=== PATIENT | female | born 2000 | race Caucasian/White ===

== ENCOUNTER 2019-08-12 15:23 | Emergency (ER) | payer OTHER ==
[2019-08-12 15:40] VITALS: BP 116/78
--- NOTE | 2019-08-12 16:02 | UC ---
Throat Pain/Nasal [place] HPI - HPI Summary HPI Summary: Pt presents with c/o nasal congestion, cough body aches, ST, subjective fever and chills X 2 days. - History of Current Complaint Chief Complaint: UCGeneralIllness Stated Complaint: EAR PAIN, SORE THROAT, CHILLS Time Seen by Provider: 08/12/19 15:43 Hx Obtained From: Patient Hx Last Menstrual Period: 07/22/19 ?: No Onset/Duration: Sudden Onset, Lasting Days, Still Present Severity: Moderate Pain Intensity: 7 Cough: Nonproductive Associated Signs & Symptoms: Positive: Sinus Discomfort, Nasal Discharge, Fever - Epiglottits Risk Factors Epiglottis Risk Factors: Sudden Onset - Allergies/Home Medications Allergies/Adverse Reactions: Allergies Allergy/AdvReac Type Severity Reaction Status Date / Time No Known Allergies Allergy Verified 08/12/19 15:37 Home Medications: Home Medications FLUoxetine* [PROzac*] 10 mg PO DAILY 08/12/19 [History Confirmed 08/12/19] Norethindrone AC-Eth Estradiol [Hakan 1.5 mg-30 Mcg Tablet] 1 each PO DAILY 08/19 [History Confirmed 08/12/19] PMH/Surg Hx/FS Hx/Imm Hx Previously Healthy: Yes - Surgical History Surgical History: None - Family History Known Family History: Positive: Cardiac Disease - Social History Occupation: Student - [employer] Lives: Dormitory/Roommates Alcohol Use: Rare Substance Use Type: None Smoking Status (MU): Never Smoked Tobacco - Immunization History Vaccination Up to Date: Yes Review of Systems All Other Systems Reviewed And Are Negative: Yes Constitutional: Positive: Fever, Chills, Fatigue Skin: Positive: Negative Eyes: Positive: Negative ENT: Positive: Sore Throat, Sinus Congestion, Sinus Pain/Tenderness Respiratory: Positive: Cough Cardiovascular: Positive: Negative Gastrointestinal: Positive: Negative Genitourinary: Positive: Negative Motor: Positive: Negative Neurovascular: Positive: Negative Musculoskeletal: Positive: Negative Neurological: Positive: Headache Psychological: Positive: Negative Is Patient Immunocompromised?: No Physical Exam Triage Information Reviewed: Yes Appearance: Ill-Appearing Vital Signs: Initial Vital Signs Temp 98.4 F 08/12/19 15:28 Pulse 110 08/12/19 15:28 Resp 16 08/12/19 15:28 BP 116/78 08/12/19 15:28 Pulse Ox 97 08/12/19 15:28 Vital Signs Reviewed: Yes Eye Exam: Normal ENT: Positive: Pharyngeal erythema, Nasal congestion Dental Exam: Normal Neck exam: Normal Respiratory Exam: Normal Cardiovascular Exam: Normal Musculoskeletal Exam: Normal Neurological Exam: Normal Psychological Exam: Normal Skin Exam: Normal Throat Pain/Nasal Course/Dx - Differential Dx/Diagnosis Differential Diagnosis/HQI/PQRI: Influenza, Pharyngitis, Sinusitis, Tonsillitis , URI Provider Diagnosis: Viral syndrome Discharge ED - Sign-Out/Discharge Documenting (check all that apply): Patient Departure All imaging exams completed and their final reports reviewed: No Studies - Discharge Plan Condition: Stable Disposition: HOME Patient Education Materials: Decongestant/Expectorant (By mouth), Viral Syndrome (ED) Referrals: [facility]IAN REFERRAL [Outside] No Primary Care Phys,NOPCP [Primary Care Provider] - Additional Instructions: Please manage your symptoms with over the counter medications. Please follow the directions on the packaging. If your symptoms do not improve or they worsen please seek care at the closest emergency department. - Billing Disposition and Condition Condition: STABLE Disposition: Home
== END 2019-08-12 16:13 | disposition home or self-care (01) ==
LOC: UCCORT 15:23
DX: R09.81 Nasal congestion (principal); R05 Cough; R68.83 Chills (without fever); R51 Headache
CPT/HCPCS: 99201; G0463